=== PATIENT | male | born 1975 | race Caucasian/White ===

== ENCOUNTER 2016-11-09 11:52 | Day surgery (SDC) | payer MEDICARE ==
--- NOTE | 2016-11-09 06:43 | History and Physical Report ---
DATE: 11/09/2016. CHIEF COMPLAINT: This is a patient with a postlaminectomy radiculitis. HISTORY OF PRESENT ILLNESS: He has an implanted spinal infusion system in place. A recent spinal cord stimulator trial was conducted to determine if we could control the residual component to this patient's pain into his extremities. He had 75 to 90 percent pain control with the trial, and he presents today for a permanent implant. PAST MEDICAL HISTORY: Seizure disorder, hypertension, thrombophlebitis, cardiac dysrhythmia. PAST SURGICAL HISTORY: Pump implant. MEDICATIONS ON ADMISSION: To be provided. ALLERGIES: Penicillin, cephalosporins. SOCIAL HISTORY: Caffeine. FAMILY HISTORY: Asthma, hypertension. REVIEW OF SYSTEMS: The patient seems appropriate and in no acute distress. The remainder of the systems review shows headaches, seizures, blood pressure problems, irregular heartbeat, bladder dysfunction with urinary retention, reflux, fibromyalgia, depression, and difficulty sleeping. PHYSICAL EXAMINATION: General: Height is 5 feet, weight is 200 pounds. Vital Signs: Unavailable. HEENT: Within normal limits. Lungs: Clear. Heart: Regular rate and rhythm. Abdomen: Nontender. Musculoskeletal: Examination of the musculoskeletal system shows diffuse tenderness throughout the lumbar spine. Range of motion causes primary pain into both lower extremities. Ambulation: No assistive device utilized. Neurologic: Cranial nerves are intact. IMPRESSION: POSTLUMBAR LAMINECTOMY RADICULITIS, ICD-10 CODE 96.1, M54.16, AND M54.17. PLAN: The patient is here for implantation of a permanent spinal cord stimulator with internal generator. All of the potential risks, side effects, and complications have been carefully reviewed and discussed including dural puncture, spinal headache, spinal cord injury, and nerve injury. The patient has read all of the appropriate information provided by the clinic as well as the airplane rental clerk on the risks. He and his are both present. They understand and agree and consent to the procedure. We will consider this outpatient, although an overnight stay will be evaluated. ESAU TOMLIN D.O. Date & Time JOB NUMBER: [id number] cc: Primary Care Physician TONG
[2016-11-09] MEDS ORDERED: HYDROCODONE/APAP 7.5/325MG TABLET PO PRN ×2 (16:43)
[2016-11-09] MEDS ORDERED: TEMAZEPAM 15 MG CAPSULE PO PRN ×2 (16:43)
[2016-11-09] MEDS ORDERED: HYDROMORPHONE HCL 1 MG/ML CPJ IM PRN (16:43)
[2016-11-09] MEDS ORDERED: METOCLOPRAMIDE HCL 10 MG/2 ML VIAL IVP PRN (16:43)
[2016-11-09] MEDS ORDERED: AL HYDROX/MAG HYDROX 30ML UD PO PRN (16:43)
[2016-11-09] MEDS ORDERED: SENNOSIDES/DOCUSATE SODIUM UD CAPSULE PO PRN ×2 (16:43)
[2016-11-09] MEDS ORDERED: ACETAMINOPHEN 325 MG TAB PO PRN ×2 (16:43)
[2016-11-09] MEDS ORDERED: DIPHENHYDRAMINE HCL 25 MG CAPSULE PO PRN ×2 (16:43)
[2016-11-09] MEDS ORDERED: OXYCODONE/APAP 10MG-325MG TABLET PO PRN (16:43)
[2016-11-09] MEDS ORDERED: DIPHENHYDRAMINE HCL IV 50 MG/ML VIAL IVP PRN ×2 (16:43)
[2016-11-09] MEDS ORDERED: METOCLOPRAMIDE 10 MG TABLET PO PRN (16:43)
[2016-11-09] MEDS ORDERED: HYDROMORPHONE HCL 2 MG/ML VIAL IM PRN (16:43)
[2016-11-09] MEDS ORDERED: LIDOCAINE 2% MDV (20MG/ML) 20ML VIAL IV ONE (16:50)
[2016-11-09] MEDS ORDERED: MIDAZOLAM HCL 2MG/2ML VIAL IV ONE (16:50)
[2016-11-09] MEDS ORDERED: VANCOMYCIN HCL 500 MG VIAL IV ONE (16:50)
[2016-11-09] MEDS ORDERED: HYDROMORPHONE HCL 2 MG/ML VIAL IV ONE (16:50)
[2016-11-09] MEDS ORDERED: LIDOCAINE 1% W/EPI 1:200,000 MPF 30ML SQ ONE (16:50)
[2016-11-09] MEDS ORDERED: FENTANYL PF 100MCG/2ML VIAL IV ONE (16:50)
[2016-11-09] MEDS ORDERED: PROPOFOL 10 MG/ML VIAL IV ONE (16:50)
[2016-11-09] MEDS ORDERED: BUPIVACAINE 0.5% W/EPI MPF 30 ML VIAL IVP ONE (16:50)
[2016-11-09] MEDS ORDERED: ALBUTEROL HFA 8 GM INHALER INH PRN (16:55)
[2016-11-09] MEDS: ACETAMINOPHEN 1,000 MG/100 ML BTL IV ONE (17:16)
[2016-11-09] MEDS: FAMOTIDINE 20MG TABLET PO ONE (17:16)
[2016-11-09] MEDS: VANCOMYCIN HCL 1,000 MG in 0.9 % SODIUM CHLORIDE 250ML 250 ML IVPB ONE (17:16)
[2016-11-09] MEDS: MECLIZINE 25 MG TABLET PO ONE (17:16)
[2016-11-09] MEDS: METOCLOPRAMIDE 10 MG TABLET PO ONE (17:16)
[2016-11-09] MEDS: OXYCODONE/APAP 10MG-325MG TABLET PO PRN (17:17)
[2016-11-09] MEDS ORDERED: PULMICORT FLEXHALER 180 MCG INH SCH (22:00)
[2016-11-09] MEDS ORDERED: LAMOTRIGINE 200 MG PO SCH (22:00)
[2016-11-09] MEDS ORDERED: PATIENT OWN MED: METOPROLOL 25 MG PO SCH (22:00)
[2016-11-09] MEDS ORDERED: 0.9 % SODIUM CHLORIDE 10ML SYR IVP SCH (22:00)
[2016-11-10] MEDS ORDERED: MODAFINIL 200 MG PO SCH (10:00)
--- NOTE | 2016-11-11 04:54 | Operative Note - Ferro ---
DATE OF SURGERY: 11/09/2016. PREOPERATIVE DIAGNOSIS: 1. POSTLUMBAR LAMINECTOMY SYNDROME, ICD-10 CODE M96.1. 2. LUMBAR RADICULITIS, ICD-10 CODE M54.16 AND M54.17. POSTOPERATIVE DIAGNOSIS: 1. POSTLUMBAR LAMINECTOMY SYNDROME, ICD-10 CODE M96.1. 2. LUMBAR RADICULITIS, ICD-10 CODE M54.16 AND M54.17. OPERATION: 1. FLUOROSCOPICALLY GUIDED RIGHT EPIDURAL ACCESS, T12-L1. PLACEMENT OF SPINAL CORD STIMULATOR LEAD 1, A [employer] INFINION 16 WITH 6 ELECTRODES, POSITIONED LEFT T7. 2. COMPLEX PROGRAMMING OF LEAD 1 FOR 20 MINUTES. 3. FLUOROSCOPICALLY GUIDED RIGHT EPIDURAL ACCESS, T11-12. PLACEMENT OF SPINAL CORD STIMULATOR LEAD 2, A [employer] INFINION 16 WITH 6 ELECTRODES, POSITIONED RIGHT T7. 4. COMPLEX PROGRAMMING OF LEAD 2 FOR 20 MINUTES. 5. INCISION, SUBCUTANEOUS DISSECTION, AND CREATION OF SUBCUTANEOUS POUCH WITH ANCHORING OF LEAD 1 AND LEAD 2 USING A [employer] LOCKING ANCHOR; EACH LEAD TO THE SUPRASPINOUS FASCIA. 6. INCISION, SUBCUTANEOUS DISSECTION, AND CREATION OF SUBCUTANEOUS POUCH AT THE RIGHT POSTERIOR GLUTEAL MARGIN WITH PLACEMENT OF GENERATOR IDENTIFIED A [employer]ENTIFIC PROGRAMMABLE RECHARGEABLE. 7. TUNNELING BETWEEN POUCHES. PLACEMENT OF EXTERNAL PORTION OF LEAD 1 AND LEAD 2 INTO GENERATOR POUCH; EACH LEAD INTERFACED WITH BIFURCATE EXTENSION. EACH BIFURCATE EXTENSION INTERFACED TO GENERATOR. 8. PLACEMENT OF GENERATOR INTO POUCH, SECURING TO POSTERIOR FASCIA USING A NONABSORBABLE SUTURE. PLACEMENT OF LEADS IN THEIR OWN POUCH. 9. CLOSURE OF INCISIONS WITH VICRYL FOR THE FASCIA AND RUNNING SUBCUTICULAR VICRYL FOR THE SKIN. DERMABOND CLOSURE. 10. COMPLEX PROGRAMMING IN THE RECOVERY ROOM, TWO INTERNAL GENERATORS, HOME USE , FOR 20 MINUTES. SURGEON: Thom Winslow D.O. ANESTHESIA: Local sedation. ANESTHESIA PROVIDER: Britton Bolaons CRNA. INDICATION: The patient presents with a history of a postlaminectomy radiculitis. Due to the failure of all therapies, a stimulator trial was conducted with 75 to 90 percent pain control. Due to the failure of other therapies and the success of the trial, he presents today for implantation of a permanent system. PROCEDURE: Intravenous line, vital sign monitoring, IV sedation. Prepped and draped with sterile technique. The patient was positioned prone. Under imaging , the epidural interspace right of the midline at 12-1 and 11-12 was infiltrated. Two separate curved access Epimed needles with loss of resistance into the space. At 12-1, spinal cord stimulator lead 1, a [employer] Infinion 16 with 6 electrodes, was positioned left of the midline at T-7. At the epidural access right of the midline at 11-12, spinal cord stimulator lead 2 , a [employer] Infinion 16 with 6 electrodes, was positioned right of the midline at T-7. Complex programming of lead 1 over 20 minutes was followed by complex programming of lead 2 over 20 minutes. This ultimately resulted in patterns of stimulation across the back and into the legs. The patient indicated we had all of the areas of his pain. He was given the options of implanting the system, continuing to program, or remove the system. He opted to implant. Questions were repeated with the same response. The skin above and below the needle was infiltrated. An incision was made and subcutaneous dissection was conducted to the supraspinous fascia. Each lead was anchored to the supraspinous fascia with a [employer] locking anchor. Antibiotic irrigation. At the right posterior gluteal margin, a site picked by the patient for the generator, the skin was infiltrated. An incision was made and subcutaneous dissection was conducted to form a pouch of suitable size and depth for the generator identified as a [employer] programmable rechargeable. A tunneling tool was used to carry the leads into the generator pouch. Each lead was interfaced with bifurcate extension. Each bifurcate extension was interfaced with the generator. The generator was placed into the pouch. This was secured to the fascia with nonabsorbable suture. Leads were placed into their own pouches. The incision was closed with Vicryl to the fascia and running subcuticular Vicryl to the skin. Dermabond closure. He was transported to the recovery room stable, showing no side effects from the procedure or sedation. He will be monitored until stable and then discharged. DISCHARGE INSTRUCTIONS: 1. The sites are to remain clean and dry. No showering or bathing in any way that would disrupt dressings. Although the Dermabond will allow showering. 2. Standard medications are to be resumed including Levaquin, the antibiotic, 500 mg once a day for 14 days. Other medications also to be resumed. 3. The patient will be seen in the office in five to seven days to evaluate the sites. Until then, he is to keep his activity level low, limiting bend, lift, push, pull. 4. All other instructions were provided including numbers to contact and possible problems. He will then be discharged. THOM WINSLOW D.O. Date & Time JOB NUMBER: [id number] cc: Primary MTDD
--- NOTE | 2016-11-11 07:25 | RADIOLOGY REPORT ---
EXAM: LUMBAR SPINE, SINGLE VIEW HISTORY: POSTOP. TECHNIQUE: A single AP view of the lower thoracic/lumbar spine was obtained. Comparison: Intraoperative images from the same date. FINDINGS: Partial visualization of two stimulating wires, the proximal tips are not entirely seen. The most proximal visualized aspect of the stimulating wires project over the T8 vertebral body. IMPRESSION: SINGLE IMAGE ABOVE. THE VISUALIZED PROXIMAL TIPS OF THE STIMULATING WIRES PROJECT OVER T8. JOB NUMBER: [id number] MTDD
== END 2016-11-09 18:30 | disposition home or self-care (01) ==
LOC: SUR 11:52 → MEDSURG 16:35 → SUR 18:30
PROVIDERS: ATTEND Pain Medicine Interventional Pain Medicine
DX: M96.1 Postlaminectomy syndrome, not elsewhere classified (principal); M54.16 Radiculopathy, lumbar region; M54.17 Radiculopathy, lumbosacral region; G47.419 Narcolepsy without cataplexy; I10 Essential (primary) hypertension; R56.9 Unspecified convulsions; E78.00 Pure hypercholesterolemia, unspecified
CPT/HCPCS: 95972; 72020; 63685; 63650 ×2; 00300; J3370; J3010; J1170; J7050

== ENCOUNTER 2017-09-20 10:33 | Day surgery (SDC) | payer MEDICARE ==
--- NOTE | 2017-09-20 06:54 | History and Physical Report ---
DATE: 09/20/2017. CHIEF COMPLAINT AND HISTORY OF CHIEF COMPLAINT: This patient presents with a postlaminectomy radiculopathy. He had a spinal cord stimulator implant on 11/09. Although initially the system appeared to be working quite well, he has had a number of functional problems with respect to the generator. Attempts at reprogramming his pain pattern have only been partially successful. Attempts at creative programing and using new waveforms to the generator were unsuccessful. At the same time, he has had an area at the midline incision which has become quite uncomfortable. Examination showed what appeared to be the possibility of a strained relief loop. He is here for replacement of the generator to a new generation of Wave[employer]ider which will provide a significantly greater degree of functionality by providing more program options and stimulation patterns. This ideally will improve his overall degree of pain control. At the same time, we will revise the leads to eliminate the strained relief loop which is causing irritation to his low back. PAST MEDICAL HISTORY: Seizure disorder, hypertension, thrombophlebitis, cardiac arrhythmia. PAST SURGICAL HISTORY: Pump implant, multiple spine surgical procedures, spinal cord stimulator. MEDICATIONS ON ADMISSION: To be provided. ALLERGIES: Penicillin, cephalosporin. SOCIAL HISTORY: Caffeine. FAMILY HISTORY: Asthma, hypertension. REVIEW OF SYSTEMS: The patient is appropriate and in no acute distress. The remainder of the systems review shows seizures, blood pressure problems, irregular heartbeat, bladder dysfunction, urinary retention, reflux, fibromyalgia, depression, difficulty sleeping. PHYSICAL EXAMINATION: General: Height and weight are unknown. Weight: Unknown. Vital Signs: Not available. HEENT: Within normal limits. Lungs: Clear. Heart: Regular rate and rhythm. Abdomen: Nontender. Musculoskeletal: Examination of the musculoskeletal system shows the incision for the leads approximating T12-L1. The generator is identified in the right posterior gluteal margin. All incisions are intact. Neurologic: Cranial nerves are intact. IMPRESSION: 1. POSTLUMBAR LAMINECTOMY SYNDROME, ICD-10 CODE M96.1. 2. LUMBAR RADICULOPATHY, ICD-10 CODE M54.16 AND M54.17. 3. SPINAL CORD STIMULATOR INTERNAL GENERATOR. PLAN: The patient is here for removal and replacement of the generator as well as lead revision. The procedure will be considered outpatient, although an overnight stay will be evaluated. JOB NUMBER: [id number] cc: Primary Care Physician TONG
[~2017-09-20 10:33] MED LIST: FAMOTIDINE 20MG TABLET PO ONE; MECLIZINE 25 MG TABLET PO ONE; METOCLOPRAMIDE 10 MG TABLET PO ONE; VANCOMYCIN HCL 1,000 MG in DEXTROSE 5 % IN WATER 250 ML IVPB ONE
[2017-09-20] MEDS ORDERED: FENTANYL PF 100MCG/2ML VIAL IV ONE (10:34)
[2017-09-20] MEDS ORDERED: CLINDAMYCIN (PEDIATRIC DOSING) 150 MG/ML VIAL IVPB ONE (10:34)
[2017-09-20] MEDS ORDERED: MIDAZOLAM HCL 2MG/2ML VIAL IV ONE (10:34)
[2017-09-20] MEDS ORDERED: LIDOCAINE 2% MDV (20MG/ML) 20ML VIAL IV ONE (10:34)
[2017-09-20] MEDS ORDERED: BUPIVACAINE 0.5% W/EPI MPF 30 ML VIAL IVP ONE (10:34)
[2017-09-20] MEDS ORDERED: HYDROMORPHONE HCL 2 MG/ML VIAL IV ONE (10:34)
[2017-09-20] MEDS ORDERED: LIDOCAINE 1% W/EPI 1:200,000 MPF 30ML SQ ONE (10:34)
[2017-09-20] MEDS ORDERED: PROPOFOL 10 MG/ML VIAL IV ONE (10:34)
[2017-09-20] MEDS ORDERED: ACETAMINOPHEN 1,000 MG/100 ML BTL IV ONE (10:34)
[2017-09-20 11:01] LABS: BASO % 0.4 % (0-6); EOS % 1.6 % (0-6); GRAN % 71.9 % (47-80); HEMATOCRIT 41.9 % (42.0-52.0); HEMOGLOBIN 13.2 gm/dl (14.0-18.0); LYMPH % 17.4 % (16-45); MEAN CELL VOLUME 92.5 fl (81-97); MEAN CORPUSCULAR HEMOGLOBIN 29.1 pg (27-33); MEAN CORPUSCULAR HGB CONC 31.5 g/dl (32-36); MEAN PLATELET VOLUME 8.9 fl (7.4-10.4); MONO % 8.7 % (0-9); PLATELET COUNT 357 K/uL (130-400); RED BLOOD COUNT 4.53 M/uL (4.40-5.70); RED CELL DISTRIBUTION WIDTH 13.9 % (11.5-14.5); WHITE BLOOD COUNT W/O DIFF 9.7 K/uL (4.2-12.2)
--- NOTE | 2017-09-20 21:30 | Operative Note - Ferro ---
DATE OF SURGERY: 09/20/17 PREOPERATIVE DIAGNOSES: 1. POST LUMBAR LAMINECTOMY SYNDROME, ICD-10 CODE = M96.1 WITH RADICULOPATHY, ICD-10 CODE = M54.16 AND M54.17. 2. SPINAL CORD STIMULATOR INTERNAL GENERATOR WITH PAIN AT MIDLINE INCISION AND NONFUNCTIONAL INTERNAL PULSE GENERATOR AT RIGHT POSTERIOR GLUTEAL MARGIN. SURGERY: 1. INCISION, SUBCUTANEOUS DISSECTION IN THE MIDLINE, INCISION WITH REVISION AND REPOSITIONING OF SPINAL CORD STIMULATOR LEADS X2. 2. INCISION, SUBCUTANEOUS DISSECTION, AND REMOVAL AND REPLACEMENT OF INTERNAL PULSE GENERATOR RIGHT POSTERIOR GLUTEAL MARGIN WITH [employer]AVE[employer] POOL CLERK PROGRAMMABLE, RECHARGEABLE. 3. COMPLEX PROGRAMMING STIMULATORS 20 MINUTES. SURGEON: ESAU TOMLIN D.O. ANESTHESIA: LOCAL SEDATION. ANESTHESIA PROVIDER: WOODY BOND CRNA INDICATIONS: This patient who presents with a postlaminectomy radiculopathy currently managed by spinal cord stimulator internal generator with two leads. He has been having a significant amount of pain at the midline from the lead placement and anchoring as well as having incomplete stimulation and pain control of the system felt to be consistent with poorly functioning generator at the right posterior gluteal margin. He is here for generator replacement with the new [employer] Line Up Person technology and for revision of the lead placement at the midline. SURGERY: Intravenous line, vital sign monitoring, IV sedation, prepped and draped with sterile technique. Under imaging, the pain at the mid back area was identified as the anchoring devices. The skin was infiltrated, incision made, and subcutaneous dissection was conducted to the insertion into the epidural space and anchoring for lead 1 and lead 2 spinal cord stimulators. The pouch around the anchors was circumferentially enlarged. Each anchor was then freed of suture and relocated laterally, repositioning the anchor with a slight revision of the lead position, shifting both anchors and suturing to the deep supraspinous fascia anchor 1 and then anchor 2 more laterally positioned paraspinal to the right. Lead migration and repositioning of approximately 4 electrodes. Each locking anchor was sutured with nonabsorbable suture. At the right posterior gluteal margin previous generator site infiltrated, incision made and subcutaneous dissection was conducted to the generator, which was then exteriorized. The generator was released from the indwelling leads and then a new [employer] Line Up Person internal pulse generator was placed onto the field and interfaced with the indwelling leads. Because of the lead revision, excess extension was then pulled down into the generator pouch. Antibiotic irrigation and Bovie for hemostasis. The generator pouch was then enlarged and revised to accommodate the extra leads and extensions. The generator was then placed into the pouch and secured to the posterior fascia with nonabsorbable suture. The midline incision and generator pouch were then both closed both with Vicryl for fascia and a running subcuticular Vicryl for skin and a Dermabond closure. He was transported to the Recovery Room stable with no side-effects from the procedure or the sedation. In the Recovery Room, complex programming was then performed over 20 minutes reestablishing stimulation and pain control to the appropriate areas. DISCHARGE INSTRUCTIONS: 1. The sites will remain clean and dry. No showering or bathing in any way that would disrupt dressings. If it happens, contact the Clinic. He can shower but he cannot sit or immerse in water. 2. Standard medications resumed including Levaquin, the antibiotic, 500 mg once a day for 14 days. 3. Activities should remain low until he is seen in the office in 7-10 days. He should limit bend, lift, push, pull. All other instructions provided, numbers to contact with problems given. He will be seen in the office in 7-10 days. cc: Primary JOB NUMBER: [id number] MTDD
--- NOTE | 2017-09-21 13:48 | RADIOLOGY REPORT ---
EXAM: THORACOLUMBAR SPINE, SINGLE AP VIEW HISTORY: POST SPINAL CORD STIMULATOR REVISION. TECHNIQUE: A single AP view of the spine was obtained from the approximate T3 level down to the lower lumbar spine. Comparison: Prior AP spine 11/09/16. FINDINGS: A battery pack is again seen overlying the left lower quadrant. There are two stimulating wires extending from the right lower quadrant to overlie the spine at the approximate L2 level and then ascend up to the T6 and T7 levels. These two wires are not clearly connected to the left lower quadrant battery pack and on the prior exam a second battery pack was partially seen overlying the right lower quadrant which may be present today, but excluded on the image. IMPRESSION: STIMULATING WIRES EXTEND UP TO THE T6 AND T7 LEVELS DESCRIBED ABOVE. JOB NUMBER: [id number] MTDD
== END 2017-09-20 14:05 | disposition home or self-care (01) ==
LOC: SUR 10:33
PROVIDERS: ATTEND Pain Medicine Interventional Pain Medicine
DX: M96.1 Postlaminectomy syndrome, not elsewhere classified (principal); M54.16 Radiculopathy, lumbar region; M54.17 Radiculopathy, lumbosacral region; I10 Essential (primary) hypertension; R56.1 Post traumatic seizures; R00.0 Tachycardia, unspecified; G89.4 Chronic pain syndrome
CPT/HCPCS: 63685; 63663; 00300; 85025; 72020; J3370; J3010; J1170; C1820; J7060

== ENCOUNTER 2018-02-21 06:17 | Day surgery (SDC) | payer MEDICARE ==
[~2018-02-21 06:17] MED LIST changes: +ACETAMINOPHEN 1,000 MG/100 ML BTL IV ONE; +BACLOFEN IV ONE; +BUPIVACAINE HCL IV ONE; +CLINDAMYCIN 600MG/50ML PREMIX 600 MG/50 ML BAG IVPB ONE; +FENTANYL CITRATE IV ONE; +FENTANYL PF 100MCG/2ML VIAL IVP ONE; -VANCOMYCIN HCL 1,000 MG in DEXTROSE 5 % IN WATER 250 ML IVPB ONE; +[UNRECOGNIZED DRUG - OTHER] IV ONE
[2018-02-21] MEDS ORDERED: BUPIVACAINE 0.5% W/EPI MPF 30 ML VIAL IVP ONE (06:18)
[2018-02-21] MEDS ORDERED: LIDOCAINE 1% W/EPI 1:200,000 MPF 30ML SQ ONE (06:18)
[2018-02-21] MEDS ORDERED: CLINDAMYCIN (PEDIATRIC DOSING) 150 MG/ML VIAL IVPB ONE (06:18)
[2018-02-21] MEDS ORDERED: LIDOCAINE 2% MDV (20MG/ML) 20ML VIAL IV ONE (06:18)
[2018-02-21] MEDS ORDERED: HYDROMORPHONE HCL 2 MG/ML VIAL IV ONE ×2 (06:18)
[2018-02-21] MEDS ORDERED: PROPOFOL 10 MG/ML VIAL IV ONE (06:18)
[2018-02-21] MEDS ORDERED: FENTANYL PF 100MCG/2ML VIAL IV ONE (06:18)
[2018-02-21] MEDS ORDERED: MIDAZOLAM HCL 2MG/2ML VIAL IV ONE (06:18)
--- NOTE | 2018-02-21 06:23 | History and Physical - Ferro ---
CHIEF COMPLAINT/HISTORY OF CHIEF COMPLAINT: This patient with a history of a post lumbar laminectomy radiculopathy has an implanted spinal opioid infusion system which had been implanted a number of years previous at another facility. Over the last number of months to year this patient has had a gradual progressive weight loss, the end result is that the pump in the lower abdominal quadrant has been highly mobile and his concern is that it is possibly flipping on its axis. He is here for revision which will involve removing the abdominal pump and replacing it with a posterior flank or inferior gluteal margin pump. This will require catheterization and extending the catheter to the new location. We will not change any of the infusion characteristics which is Fentanyl and Bupivacaine. PAST MEDICAL HISTORY: Seizure disorder, hypertension, thrombophlebitis, and cardiac arrhythmia. PAST SURGICAL HISTORY: Tonsils, spinal cord stimulator, laminectomy lead and pump implant. MEDICATIONS ON ADMISSION: List to be provided. ALLERGIES: PENICILLIN, AND CEPHALOSPORINS. FAMILY/PSYCHOSOCIAL HISTORY: Social history - Caffeine. Family history - Asthma and hypertension. SYSTEMS REVIEW: The patient is appropriate in no acute distress. The remainder of the systems review is positive for headaches, seizures, blood pressure problems, irregular heartbeat, bladder dysfunction with urinary retention, reflux, fibromyalgia, depression, and difficulty sleeping. PHYSICAL EXAMINATION: Height is 5'0", weight is 200 pounds. No vital signs. HEENT: Within normal limits. LUNGS: Clear. HEART: Regular rate and rhythm. ABDOMEN: Nontender. MUSCULOSKELETAL: Examination of the musculoskeletal system shows the pump in a lower abdominal quadrant. The incisional line appears to be intact. His primary pain pattern is low back with a bilateral lower extremity extension. Motor and sensory field function shows sensory abnormalities and motor weakness. NEUROLOGIC: Cranial nerves are intact. IMPRESSION: POST LUMBAR LAMINECTOMY SYNDROME, ICD-10 CODE M96.1 WITH RADICULOPATHY ICD-10 CODE M54.16 AND M54.17. IMPLANTED INFUSION DEVICE USING FENTANYL AND BUPIVACAINE. PLAN: He is as stated for removal of an abdominal pump and placement of a posterior spine pump. The procedure will be considered outpatient although an overnight stay will be evaluated. JOB NUMBER: [id number] [facility] [place] [facility]
[2018-02-21 06:41] LABS: BASO % 0.8 % (0-6); EOS % 3.4 % (0-6); GRAN % 60.4 % (47-80); HEMATOCRIT 44.7 % (42.0-52.0); HEMOGLOBIN 13.8 gm/dl (14.0-18.0); LYMPH % 26.2 % (16-45); MEAN CELL VOLUME 91.4 fl (81-97); MEAN CORPUSCULAR HEMOGLOBIN 28.2 pg (27-33); MEAN CORPUSCULAR HGB CONC 30.9 g/dl (32-36); MEAN PLATELET VOLUME 9.1 fl (7.4-10.4); MONO % 9.2 % (0-9); PLATELET COUNT 358 K/uL (130-400); RED BLOOD COUNT 4.89 M/uL (4.40-5.70); RED CELL DISTRIBUTION WIDTH 13.8 % (11.5-14.5); WHITE BLOOD COUNT W/O DIFF 9.5 K/uL (4.2-12.2)
[2018-02-21] MEDS ORDERED: OXYCODONE/APAP 10MG-325MG TABLET PO PRN ×2 (10:30)
[2018-02-21] MEDS ORDERED: HYDROMORPHONE HCL 2 MG/ML VIAL IM PRN ×2 (10:30)
[2018-02-21] MEDS ORDERED: METOCLOPRAMIDE HCL 10 MG/2 ML VIAL IVP PRN (10:30)
[2018-02-21] MEDS ORDERED: HYDROCODONE/APAP 7.5/325MG TABLET PO PRN ×2 (10:30)
[2018-02-21] MEDS ORDERED: DIPHENHYDRAMINE HCL 50 MG/ML VIAL IVP PRN ×2 (10:30)
[2018-02-21] MEDS ORDERED: RINGERS SOLUTION,LACTATED 1,000 ML IV SCH (10:30)
[2018-02-21] MEDS ORDERED: DIPHENHYDRAMINE HCL 25 MG CAPSULE PO PRN ×2 (10:30)
[2018-02-21] MEDS ORDERED: AL HYDROX/MAG HYDROX 30ML UD PO PRN (10:30)
[2018-02-21] MEDS ORDERED: SENNOSIDES/DOCUSATE SODIUM UD CAPSULE PO PRN ×2 (10:30)
[2018-02-21] MEDS ORDERED: METOCLOPRAMIDE 10 MG TABLET PO PRN (10:30)
[2018-02-21] MEDS ORDERED: NALOXONE 0.4 MG/1 ML VIAL IVP PRN (10:30)
[2018-02-21] MEDS ORDERED: ACETAMINOPHEN 325 MG TAB PO PRN ×2 (10:30)
[2018-02-21] MEDS ORDERED: TEMAZEPAM 15 MG CAPSULE PO PRN ×2 (10:30)
[2018-02-21] MEDS ORDERED: ALBUTEROL HFA 8 GM INHALER INH PRN (10:35)
[2018-02-21] MEDS ORDERED: SUMATRIPTAN 6 MG/0.5 ML VIAL SQ PRN (10:36)
[2018-02-21] MEDS ORDERED: HYDROMORPHONE HCL 2MG TABLET PO PRN (11:03)
[2018-02-21] MEDS ORDERED: CLINDAMYCIN 600MG/50ML PREMIX 600 MG/50 ML BAG IVPB SCH (15:30)
[2018-02-21] MEDS ORDERED: MONTELUKAST SODIUM 10MG TABLET PO SCH (22:00)
[2018-02-21] MEDS ORDERED: TIZANIDINE HCL 4 MG TABLET PO SCH (22:00)
[2018-02-21] MEDS ORDERED: DOCUSATE SODIUM 100 MG CAPSULE PO SCH (22:00)
[2018-02-21] MEDS ORDERED: FAMOTIDINE 20MG TABLET PO SCH (22:00)
[2018-02-21] MEDS ORDERED: PANTOPRAZOLE SODIUM 40 MG TABLET PO SCH (22:00)
[2018-02-21] MEDS ORDERED: LAMOTRIGINE 100 MG TABLET PO SCH (22:00)
[2018-02-21] MEDS ORDERED: METOPROLOL TART 25 MG TABLET PO SCH (22:00)
[2018-02-21] MEDS ORDERED: LITHIUM CARBONATE 300 MG PO SCH (22:00)
[2018-02-21] MEDS ORDERED: RISPERIDONE 0.25 MG TABLET PO SCH (22:00)
[2018-02-22] MEDS ORDERED: BREO (FLUTICASONE/VILANTEROL) 200MCG/25MCG INHALER INH SCH (10:00)
[2018-02-22] MEDS ORDERED: UMECLIDINIUM BROMIDE (INCRUSE) 62.5MCG IH SCH (10:00)
--- NOTE | 2018-02-23 06:53 | Operative Note ---
DATE: 02/21/2018. PREOPERATIVE DIAGNOSES: 1. POSTLUMBAR LAMINECTOMY SYNDROME, ICD-10 CODE M96.1. 2. RADICULOPATHY, ICD-10 CODE M54.16 AND M54.17. 3. IMPLANTED SPINAL OPIOID INFUSION SYSTEM WITH FENTANYL AND BUPIVACAINE WITH ABDOMINAL PUMP UNSTABLE. ANESTHESIA: Local sedation. ANESTHESIA PROVIDER: Britton Bolanos CRNA. PROCEDURES: 1. Incision, subcutaneous dissection, and removal of left lower abdominal quadrant pump with catheter segment. 2. Incision, subcutaneous dissection, and creation of subcutaneous pouch at left flank for placement of pump identified as [employer] 20 mL programmable pump. 3. Incision, subcutaneous dissection, and revision of indwelling spinal catheter. 4. Interface spinal catheter with second catheter component with connector. 5. Placement of 20 mL programmable pump onto the field prefilled with Fentanyl and Bupivacaine. Interface to revised catheter by placement of pump catheter combination into flank pouch securing to posterior fascia using nonabsorbable suture at three points with pump eyelets. 6. Placement of curved 24-gauge Prieto needle into access port programmable pump aspirating and clearing catheter of opioid and cerebrospinal fluid mixture. 7. Diagnostic myelography with radiologic supervision and interpretation using access port confirming functionality of pump catheter. 8. Closure of incisions with Vicryl for the fascia and elan for the skin for both abdominal and posterior incisions. OpSite dressing placed. 9. Programming of pump to deliver by continuous infusion Fentanyl and Bupivacaine at 200 micrograms of Fentanyl per day. SURGEON: Thom Winslow D.O. ANESTHESIA: Local sedation. ANESTHESIA PROVIDER: Nimisha Dhaliwal CRNA. INDICATIONS: This patient presents with a history of an intractable postlaminectomy radiculopathy. Due to the failure of all therapies, a spinal opioid infusion system was implanted in his left lower abdominal quadrant at another facility approximately three to five years ago. We assumed responsibility for managing the pump once the other practice was closed. Over the last number of weeks to months, he has been losing a dramatic amount of weight which has caused the abdominal pump to flip in its location. For safety purposes, he is here for removal of the abdominal pump and replacement and relocation to the posterior spine. DESCRIPTION OF PROCEDURE: Intravenous lines, vital sign monitoring, and intravenous sedation. Prepped and draped with sterile technique. The patient was positioned prone. The left flank site picked by the patient was infiltrated with local. An incision was made and subcutaneous dissection was conducted to form a pouch of suitable size and depth for the pump, a 20 mL programmable pump, at the left flank. The midline spinal catheter incision was marked and infiltrated. An incision was made and subcutaneous dissection was conducted to the catheter. The catheter was then identified and cut. The indwelling catheter component was then resected and revised with a second catheter component by way of a connector. The second catheter component was settled into the flank pouch. The revised catheter was then interfaced to the pump placed onto the field, 20 mL programmable pump, prefilled with Fentanyl and Bupivacaine. With the pump catheter combination intact, antibiotic irrigation and Bovie for hemostasis, in the pouch. The pump was placed into the pouch and secured to the posterior fascia with nonabsorbable suture at three points with pump eyelets. With the pump/catheter connection made, a 24-gauge Prieto needle was inserted into the access port, and 1.0 mL of catheter contents was aspirated, clearing the spinal catheter of opioids and cerebrospinal fluid mixture. Diagnostic myelography was performed. The resulting flow characteristics showed full functionality of the system. Both posterior incisions were closed with Vicryl for the fascia and elan for the skin. The pump was then programmed back to its original parameters of 200 micrograms of Fentanyl per day. He was then turned supine and the field was reprepped at the left lower abdominal quadrant. The pump pouch incision was infiltrated. An incision was made and subcutaneous dissection was conducted to the pump's Dacron sleeve. The Dacron sleeve was opened and the pump was exteriorized. The pump was removed along with its catheter component. The Dacron sleeve was trimmed. It could not be removed because of the fibrosis interfacing the Dacron sleeve to the body. Antibiotic irrigation and Bovie for hemostasis. The incision was closed with Vicryl for the fascia and elan for the skin. An OpSite dressing was placed. He was transported to the recovery room stable with no side effects from the procedure or the sedation. All catheter external components were accounted for. He will be kept overnight for observation and pain management. His pump was set back to the original parameters of 200 micrograms of Fentanyl per day. No epidural blood patch was necessary. There was no appreciable cerebrospinal fluid loss, and no dural puncture had been performed. DISCHARGE INSTRUCTIONS: 1. He will be discharged in the morning. The sites are to remain clean and dry. The elan will stay in place until he is seen in 10 to 14 days. At that point the elan will be removed, and he will be evaluated for increasing activities. Until then, his activities should stay fully controlled. 2. The office is to contact him at home in the next 24 to 48 hours to set up an appointment to be seen in the office. 3. He has been given an antibiotic with Levaquin 500 mg once a day for 14 days. 4. All other instructions were provided including numbers to contact with problems. 5. Spinal opioid side effects including respiratory depression, nausea, vomiting, constipation, urinary retention, lightheadedness, and rash have all been discussed and reviewed. JOB NUMBER: [id number] cc: Primary Care Physician TONG
--- NOTE | 2018-02-25 08:40 | RADIOLOGY REPORT ---
DATE: 02/21/2018. EXAM: SPINE. HISTORY: Status post pain pump revision. TECHNIQUE: Single frontal view of the thoracolumbar spine. COMPARISON: Spine radiograph dated 09/20/2017. FINDINGS: Spinal stimulator leads are again noted. Suggestion of interval adjustment; inferior-most portion of the leads now superimposes the T10 vertebral body area previously seen slightly more superiorly. The most proximal aspect of the leads is not completely seen on today's evaluation. Midline and left abdominal skin elan are noted. Generator device superimposes the right iliac wing. Pump device superimposes the left iliac wing. Nonobstructive bowel gas pattern. Moderate stool in the visualized colon. IMPRESSION: APPARENT INTERVAL ADJUSTMENT OF SPINAL STIMULATOR LEADS ABOVE. PLEASE SEE CLINICIAN PROCEDURAL NOTE FOR FURTHER DETAIL. JOB NUMBER: [id number] MTDD
== END 2018-02-21 13:32 | disposition home or self-care (01) ==
LOC: SUR 06:17 → MEDSURG 11:22 → SUR 14:12
PROVIDERS: ATTEND Pain Medicine Interventional Pain Medicine
DX: M96.1 Postlaminectomy syndrome, not elsewhere classified (principal); M54.16 Radiculopathy, lumbar region; M54.17 Radiculopathy, lumbosacral region; I10 Essential (primary) hypertension; R56.9 Unspecified convulsions; R00.0 Tachycardia, unspecified; G47.33 Obstructive sleep apnea (adult) (pediatric); J45.909 Unspecified asthma, uncomplicated
CPT/HCPCS: 62350; 62362; 01936; 62368; 85025; 85002; 72020; Q9967; J3490; J3010 ×2; J1170; J0475; C1755; J7120